=== PATIENT | male | born 1960 | race Caucasian/White ===

== ENCOUNTER → 2023-04-26 16:24 | Outpatient (CLI) | payer OTHER, SELFPAY ==
[2023-04-26 17:38] LABS: Hemoglobin 14.5 g/dL (13.5-17.5); Mean Corpuscular HGB Conc 34.4 % (30-36); Mean Corpuscular Hemoglobin 31.4 PG (26-34); Mean Corpuscular Volume 91.3 fL (80-100); Platelet Count 199 X10^3/uL (150-400); Red Cell Distribution Width 13.3 % (11.6-14.8); White Blood Cell Count 8.1 X10^3/uL (4.5-11.0)
[2023-04-26 17:54] LABS: Alanine Aminotransferase 31 IU/L (<50); Albumin 4.2 g/dL (3.5-5.0); Albumin Globulin Ratio 1.4 (1.0-2.8); Alkaline Phosphatase 58 U/L (38-126); Aspartate Aminotransferase 28 IU/L (17-59); BUN Creatinine Ratio 20.3 (6-22); Bilirubin Total 0.6 mg/dL (0.2-1.3); Blood Urea Nitrogen 16 mg/dL (9-20); Calcium 9.7 mg/dL (8.4-10.2); Carbon Dioxide 28 mmol/L (22-32); Chloride 105 mmol/L (98-107); Cholesterol 165 mg/dL (140-199); Estimated Glomerular Filt Rate > 60 mL/min (>60); Globulin 2.9 g/dL (1.7-4.1); Glucose 92 mg/dL (80-110); HDL Cholesterol 45 mg/dL (40-60); HEMOLYSIS < 15 (0-50); LDL Cholesterol Calculated 76 mg/dL (<100); Potassium 3.9 mmol/L (3.4-5.1); Sodium 138 mmol/L (137-145); Total Protein 7.1 g/dL (6.3-8.2); Triglycerides 218 mg/dL (35-150)
[2023-04-26 18:27] LABS: Prostate Specific Antigen Scrn 3.01 ng/mL (0.1-4.0)
== END ==
PROVIDERS: PCP Internal Medicine; Referring Provider Internal Medicine; Visit Provider Internal Medicine
DX: Z12.5 Encounter for screening for malignant neoplasm of prostate (principal); E78.2 Mixed hyperlipidemia; I10 Essential (primary) hypertension
CPT/HCPCS: 36415; 80053; 80061; 84443; 85027; G0103

== ENCOUNTER 2023-06-09 07:10 | Day surgery (SDC) | payer OTHER, SELFPAY ==
[2023-06-09] MEDS: LACTATED RINGERS 1,000 ML 42 ML IV (07:47)
[2023-06-09 07:50] VITALS: BP 120/77; PULSE 62; RESP 18; TEMP 36.3; O2SAT 98; BMI 28.8
--- NOTE | 2023-06-09 08:19 | P.HP_ITS ---
History of Present Illness History of Present Illness Date Patient Seen: 06/09/23 Time Patient Seen: 08:19 Chief complaint: Screening Colonoscopy Narrative: last scope was 10 years ago. No symptoms or family history of concern. [facility] Medical History PAC (premature atrial contraction) Mixed hyperlipidemia Essential hypertension Acne Chicken pox (~1969) Surgical History Anesthesia H/O left knee surgery History of photorefractive keratectomy (~1996) Family History Father Stroke Mother Thyroid cancer Brother Hepatitis Grandmother Cancer Social History household members: spouse Smoking Status: Never smoker Meds Home Medications and Allergies Home Medications Medication Instructions Recorded Confirmed Type carvedilol 12.5 mg tablet 12.5 mg PO BID #180 tabs 04/26/23 06/09/23 Rx lisinopril 10 mg tablet 10 mg PO DAILY #90 tabs 04/26/23 06/09/23 Rx rosuvastatin 20 mg tablet 20 mg PO DAILY #90 tabs 04/26/23 06/09/23 Rx Allergies Allergy/AdvReac Type Severity Reaction Status Date / Time No Known Drug Allergies Allergy Verified 06/09/23 07:47 Review of Systems Review of Systems ROS: Yes All systems reviewed with the patient and are negative except as otherwise documented Exam Vital Signs (past 8 hours): - 06/09/23 07:50 Temperature 97.4 F L Pulse Rate 62 Respiratory Rate 18 Blood Pressure 120/77 Pulse Oximetry 98 Oxygen Delivery Method Room Air Oxygen Delivery Method Room Air Const General: cooperative and healthy appearing HENMT Head: normal to inspection and normocephalic Eyes General: appearance normal, both eyes and all related structures Neck Neck: trachea midline and No JVD Resp Effort & Inspection: normal respiratory effort and able to speak in complete sentences Cardio Rate: regular rate Rhythm: regular rhythm GI Palpation: soft and No tender Skin General: elasticity normal and turgor normal Neuro General: patient alert, patient awake and patient oriented x3 Cognition: normal cognition Psych Appearance: grossly normal Mental Status: mental status grossly normal Judgment: judgment good Assessment & Plan Assessment & Plan narrative: Screening for colon cancer with colonoscopy using anesthesia Time Spent With Patient Time with patient: less than 30 minutes
[2023-06-09 08:40] VITALS: BP 88/58; PULSE 68; RESP 16; TEMP 36.2; O2SAT 95
--- NOTE | 2023-06-09 08:41 | PM.OP.COLON ---
Operative Date/Time/Diagnoses Date of procedure: 06/09/23 Time of procedure: 08:41 Pre-op diagnosis: Colon cancer screening Post-op diagnosis: same Procedure & Clinicians Study performed: Colonoscopy with anesthesia Same procedure as scheduled: Yes Indications: Colon cancer screening Surgeon: Nusrat Campbell Procedure Notes Procedure in detail: Preop diagnosis: Colon cancer screening Postop diagnosis: Same Operative procedure: Colonoscopy with anesthesia Surgeon: Samantha Campbell MD Findings: Scant moderate sized diverticuli of the descending colon, no polyps Procedure: Patient placed in a lateral position. Rectal exam performed showing normal tone no masses. Colonoscope inserted into the rectum and advanced to ileocecal valve with minimal difficulty. Insufflation extraction scope and the above findings. Retroflex was included in the rectum, and cecum. Impression: Scant diverticulosis of the descending colon. Plan: Repeat colonoscopy in 10 years unless otherwise indicated by change in clinical condition Findings: divertiulosis Specimen(s): none sent Complications: none Post-procedure Recommendations: Colonoscopy in 10 years Follow up: as needed Disposition: PACU
[2023-06-09 08:45] VITALS: BP 94/62; PULSE 68; RESP 16; O2SAT 99
[2023-06-09 08:50] VITALS: BP 107/73; PULSE 60; RESP 12; O2SAT 100
[2023-06-09 09:00] VITALS: BP 115/81; PULSE 61; RESP 15; TEMP 36.6; O2SAT 100
== END 2023-06-09 09:05 | disposition home or self-care (01) ==
PROVIDERS: PCP Internal Medicine; Referring Provider Surgery; Visit Provider Surgery
PROC: 0DJD8ZZ Inspection of Lower Intestinal Tract, Via Natural or Artificial Opening Endoscopic (ICD-10-PCS; CPT 45378; principal; 2023-06-09 08:15)
DX: Z12.11 Encounter for screening for malignant neoplasm of colon (principal); K57.30 Diverticulosis of large intestine without perforation or abscess without bleeding
CPT/HCPCS: 45378

== ENCOUNTER → 2024-08-21 09:47 | Outpatient (CLI) | payer OTHER, SELFPAY ==
[2024-08-21 11:31] LABS: Aspartate Aminotransferase 29 IU/L (17-59); BUN Creatinine Ratio 22.1 (6-22); Blood Urea Nitrogen 15 mg/dL (9-20); Carbon Dioxide 25 mmol/L (22-32); Chloride 105 mmol/L (98-107); Cholesterol 165 mg/dL (140-199); Estimated Glomerular Filt Rate > 60 mL/min (>60); Glucose 104 mg/dL (80-110); HDL Cholesterol 49 mg/dL (40-60); HEMOLYSIS < 15 (0-50); LDL Cholesterol Calculated 92 mg/dL (<100); Potassium 4.6 mmol/L (3.4-5.1); Sodium 137 mmol/L (137-145); Triglycerides 120 mg/dL (35-150)
[2024-08-21 11:55] LABS: Prostate Specific Antigen Scrn 2.94 ng/mL (0.1-4.0)
[2024-08-22 08:36] LABS: Rubeola Measles IgG > 300.0 AU/mL (Immune >16.4)
[2024-08-22 10:36] LABS: Mumps Virus IgG Antibody >300.0 AU/mL (Immune >10.9)
== END ==
PROVIDERS: PCP Internal Medicine; Referring Provider Internal Medicine; Visit Provider Internal Medicine
DX: Z12.5 Encounter for screening for malignant neoplasm of prostate (principal); I10 Essential (primary) hypertension; E78.2 Mixed hyperlipidemia; Z20.9 Contact with and (suspected) exposure to unspecified communicable disease
CPT/HCPCS: 36415; 80048; 80061; 84450; 86735; 86762; 86765; G0103

== ENCOUNTER → 2024-11-16 06:56 | Outpatient (CLI) | payer OTHER, SELFPAY ==
--- NOTE | 2024-11-16 06:56 | DI.ECHO.S_ITS ---
[facility] +---------+ [facility] : : [address] : : [place] : : [id number] : : Phone: [phone] Echocardiogram Report + + :Name: CHASE HURST Study Date: 11/16/2024 Height: 74 in : :Hospital ReadingLocation: Weight: 218 lb : : Gender: Male BSA: 2.3 m2 : :: 1960 Age: 64 yrs BP: 120/86 mmHg: :Reason For Study: HISTORY OF DIALTED CARDIOMYOPATHY : :Ordering Physician: LAUREANO, : :JOSEPHINE Performed By: Wendy Roy : :Referring: JOSEPHINE TINSLEY : + + Interpretation Summary The left ventricle is mildly dilated. The ejection fraction is estimated to be 50-55%. Diastolic function could not be accurately assessed due to contradictory data. The left atrium is mildly dilated. The right ventricle is normal in size and function. There is mild mitral regurgitation. There is mild tricuspid regurgitation. Pulmonary artery pressures cannot be estimated because of the lack of a measurable TR jet velocity but the IVC suggests a CVP of around 3 mmHg. The ascending aorta is mildly enlarged. Procedure: A two-dimensional transthoracic echocardiogram with color flow and Doppler was performed. The study quality was technically adequate. There is no prior echocardiogram noted for this patient. The patient was in sinus rhythm with heart rates between 52-75 bpm during the exam. Left Ventricle: There is normal left ventricular wall thickness. The left ventricle is mildly dilated. The ejection fraction is estimated to be 50-55%. Diastolic function could not be accurately assessed due to contradictory data. Right Ventricle: The right ventricle is normal in size and function. Atria: The left atrium is mildly dilated. Right atrial size is normal. There is no Doppler evidence for an interatrial shunt. Mitral Valve: The mitral valve leaflets appear mildly thickened, but open well. There is mild mitral regurgitation. Aortic Valve: The aortic valve is trileaflet. The aortic valve opens well. There is no aortic valve stenosis. There is trace aortic regurgitation. Tricuspid Valve: The tricuspid valve leaflets are thin and pliable. There is mild tricuspid regurgitation. Pulmonary artery pressures cannot be estimated because of the lack of a measurable TR jet velocity but the IVC suggests a CVP of around 3 mmHg. Pulmonic Valve: The pulmonic valve leaflets are thin and pliable; valve motion is normal. There is trace pulmonic regurgitation. Great Vessels: The aortic root is normal size. The ascending aorta is mildly enlarged. The aortic arch is mildly enlarged. The IVC is of normal diameter and collapses greater than 50% with a sniff. This suggests a low right atrial pressure of 3 mm Hg. Pericardium/ Pleura There is no pericardial effusion. There is no pleural effusion. MMode/2D Measurements & Calculations LVIDd: 6.2 cm LVOT diam: 2.2 cm LVIDs: 4.1 cm Ao root diam: 3.2 cm FS: 33.2 % asc Aorta Diam: 3.8 cm EPSS: 0.82 cm Ao Arch Diam (Prox Trans): 4.0 cm IVSd: 1.0 cm LVPWd: 0.99 cm LV nevarez. diameter/BSA (cm/m^2): 2.8 LV sys. diameter/BSA (cm/m^2): 1.8 LA A2 area: 22.4 cm2 RA long axis: 5.8 cm LA A4 area: 25.9 cm2 RA area: 21.9 cm2 LA length (vol): 6.0 cm RA vol: 70.3 ml LA vol: 82.7 ml RA : 31.2 ml/m2 LA vol index: 36.7 ml/m2 IVC diam: 2.0 cm RVD1 (basal): 3.8 cm RVD2 (mid): 2.6 cm TAPSE: 2.0 cm Doppler Measurements & Calculations Ao V2 max: 131.0 cm/sec LVOT Max Rad: 86.5 cm/sec Ao V2 mean: 96.1 cm/sec LV V1 max P.0 mmHg Ao max P.9 mmHg LV V1 VTI: 19.7 cm Ao mean P.0 mmHg NOEL(I,D): 2.3 cm2 Ao V2 VTI: 31.5 cm NOEL(V,D): 2.5 cm2 sev ratio: 0.62 NOEL indexed to BSA (cm^2/m^2): 1.0 MV E max rad: 49.6 cm/sec TR max rad: 224.4 cm/sec MV A max rad: 60.2 cm/sec TR max P.1 mmHg MV E/A: 0.82 PA V2 max: 95.9 cm/sec Med Peak E' Rad: 5.6 cm/sec PA V2 mean: 70.8 cm/sec E/E' med: 8.8 PA mean P.2 mmHg Lat Peak E' Rad: 6.5 cm/sec PA pr(Accel): 25.1 mmHg E/E' lat: 7.6 E/e' average: 8.2 MV dec time: 0.23 sec SV(LVOT): 73.7 ml Reading Physician:02:55 PM
== END ==
PROVIDERS: PCP Internal Medicine; Referring Provider Internal Medicine; Visit Provider Internal Medicine
DX: I08.1 Rheumatic disorders of both mitral and tricuspid valves (principal); I77.89 Other specified disorders of arteries and arterioles; I50.22 Chronic systolic (congestive) heart failure; I42.0 Dilated cardiomyopathy
CPT/HCPCS: 93306

== ENCOUNTER → 2025-04-23 16:04 | Outpatient (CLI) | payer OTHER, SELFPAY ==
--- NOTE | 2025-04-23 16:06 | DI.RAD.S_ITS ---
PROCEDURE: XR CHEST 2V
== END ==
PROVIDERS: PCP Internal Medicine; Referring Provider Internal Medicine; Visit Provider Internal Medicine
DX: J20.9 Acute bronchitis, unspecified (principal)
CPT/HCPCS: 71046

== ENCOUNTER → 2025-05-04 07:39 | Outpatient (CLI) | payer OTHER, SELFPAY ==
--- NOTE | 2025-05-04 07:40 | DI.CT.S_ITS ---
PROCEDURE: CT CHEST WO CON INDICATIONS: possible 1.7 cm pulm nodule on CXR, chest congestion TECHNIQUE: Noncontrast 5 mm thick sections acquired from the pulmonary apices to the posterior costophrenic angles. 1 mm lung window, 5 mm thick coronal and sagittal and 7 mm axial MIP reformats were then acquired. For radiation dose reduction, the following was used: automated exposure control, adjustment of mA and/or kV according to patient size. COMPARISON: [facility], CR, XR CHEST 2V, 04/23/2025, 16:04. FINDINGS: Image quality: Diagnostic. Lower Neck: No enlarged lymph nodes. Thyroid: No thyroid nodules which require sonographic follow up, per consensus guidelines. Axillae: No enlarged lymph nodes. Chest Wall: Unremarkable. Bones: Unremarkable. Lungs and Pleura: No pneumothorax or pleural effusions. 1.7 cm right upper lobe nodule corresponding to x-ray abnormality. Nodule appears to have thin linear connections to adjacent vasculature. No priors. No calcifications. Microscopic fat cannot be definitively excluded. Heart: Heart size is normal. No pericardial effusion. Thoracic Vessels: The aorta and pulmonary arteries demonstrate normal size. Mediastinum and Suki: No enlarged lymph nodes. Esophagus: No wall thickening. Minimal hiatal hernia. Upper Abdomen: Low-attenuation hepatic foci with Hounsfield units most suggestive of simple cysts. IMPRESSION: 1.7 cm nodule in the right upper lobe with suggestion of adjacent vascularity. Cannot exclude microscopic fat as would be seen with hamartoma. However, no calcifications are identified. PET scan is recommended for further evaluation. Dictated by: Analy Ribeiro M.D. on 05/05/2025 at 15:57 Approved by: Analy Ribeiro M.D. on 05/05/2025 at 16:04
== END ==
LOC: CT 07:40
PROVIDERS: PCP Internal Medicine; Referring Provider Internal Medicine; Visit Provider Internal Medicine
DX: R91.1 Solitary pulmonary nodule (principal)
CPT/HCPCS: 71250